=== PATIENT | male | born 1980 | race African-American/Black ===

== ENCOUNTER 2025-07-09 11:28 | Emergency (ER) | payer OTHER ==
[~2025-07-09] VITALS: Ht 170.2 cm; Wt 79.0 kg
[2025-07-09 11:42] VITALS: BP 126/87; PULSE 60; RESP 18; TEMP 98; O2SAT 99
[2025-07-09] MEDS: LIDOCAINE 1% 10 ML VIAL SQ ONE (12:31)
[2025-07-09] MEDS: PERTUSS(ACELL),DIPH,TET/PF 0.5 ML SYRINGE [ADULT] IM. ONE (12:31)
[2025-07-09] MEDS ORDERED: IBUP-1492 PO (13:19)
[2025-07-09] MEDS ORDERED: CEPH-558 PO (13:22)
== END 2025-07-09 13:39 | disposition home or self-care (01) ==
LOC: EMS 11:44
DX: S61.012A Laceration without foreign body of left thumb without damage to nail, initial encounter (principal); W26.8XXA Contact with other sharp object(s), not elsewhere classified, initial encounter; Y93.89 Activity, other specified; Y92.89 Other specified places as the place of occurrence of the external cause; Y99.8 Other external cause status
CPT/HCPCS: 99283; 90715; 90471; 12001; J3490